=== PATIENT | female | born 1990 | race Caucasian/White ===

== ENCOUNTER 2022-01-21 07:37 | Emergency (ER) | payer OTHER ==
[~2022-01-21] VITALS: Ht 160 cm; Wt 54.4 kg
[2022-01-21] MEDS ORDERED: ACETAMINOPHEN 500 MG TAB PO ONE (09:45)
[2022-01-21 10:35] LABS: Basophils # (auto) 0 10 ^3/uL (0-0.2); Basophils % (auto) 0.3 % (0.0-2.0); Eosinophils # (auto) 0 10 ^3/uL (0-0.8); Eosinophils % (auto) 0.1 % (0.0-7.0); Hematocrit 40.9 % (36.0-46.0); Hemoglobin 13.7 g/dL (12.2-16.2); Lymphocytes # (auto) 0.6 10 ^3/uL (0.4-5.4); Lymphocytes % (auto) 4.9 % (10.0-50.0); Mean Corpuscular Hemoglobin 30.7 pg (28.0-32.0); Mean Corpuscular Hgb Conc. 33.5 g/dL (32.0-36.0); Mean Corpuscular Volume 91.7 fL (80.0-100.0); Monocytes # (auto) 0.3 10 ^3/uL (0-1.3); Monocytes % (auto) 2.5 % (0.0-12.0); Neutrophils # (auto) 11.8 10 ^3/uL (1.6-8.6); Neutrophils % (auto) 92.2 % (37.0-80.0); Red Blood Cells 4.46 10^6/uL (4.0-5.20); Red Cell Distribution Width 12.8 % (11.8-14.3); White Blood Cell 12.8 10^3/uL (4.4-10.8)
[2022-01-21 10:46] LABS: Albumin 3.9 g/dL (3.4-5.0); Calcium 8.3 mg/dL (8.5-10.1); Potassium 4.3 mmol/L (3.5-5.1)
[2022-01-21 10:49] LABS: Bilirubin, Total 0.8 mg/dL (0.2-1.0); Total Protein 7.6 g/dL (6.4-8.2)
[2022-01-21 12:37] VITALS: BP 114/55
[2022-01-21 13:21] LABS: Urine Bacteria NONE SEEN /hpf (None Seen); Urine Blood Negative /uL (Negative); Urine Budding Yeast OCCASIONAL /hpf (None Seen); Urine Specific Gravity 1.024 (1.001-1.035); Urine WBC 3 /hpf (0 - 5)
[2022-01-21 13:41] LABS: Amphetamine Screen, Urine NEGATIVE (NEGATIVE); Barbiturate Scree,Urine NEGATIVE (NEGATIVE); Benzodiazephine Screen, Urine NEGATIVE (NEGATIVE); Cannabinoid Screen, Urine POSITIVE (NEGATIVE); Cocaine Screen, Urine NEGATIVE (NEGATIVE); Phencyclidine Screen, Urine NEGATIVE (NEGATIVE)
[2022-01-21 13:49] LABS: Opiate Scree,Urine NEGATIVE (NEGATIVE)
== END 2022-01-21 14:14 | disposition home or self-care (01) ==
LOC: ER 07:37
DX: S00.03XA Contusion of scalp, initial encounter (principal); R55 Syncope and collapse; F12.10 Cannabis abuse, uncomplicated; W18.39XA Other fall on same level, initial encounter; Y93.89 Activity, other specified; Y92.091 Bathroom in other non-institutional residence as the place of occurrence of the external cause; Y99.8 Other external cause status
CPT/HCPCS: 36415; 80053; 80307; 81001; 83735; 84702; 85025; 93005

== ENCOUNTER 2024-07-01 10:01 | Emergency (ER) | payer OTHER ==
[~2024-07-01] VITALS: Ht 160 cm; Wt 60.7 kg
[2024-07-01 10:53] LABS: Urine Bacteria FEW /hpf (None Seen); Urine Blood Negative /uL (Negative); Urine Clarity Clear (Clear); Urine Color Colorless (Yellow); Urine Protein, UAD Negative (Negative); Urine Specific Gravity 1.008 (1.001-1.035); Urine Urobilinogen Normal (Negative); Urine WBC <1 /hpf (0 - 5)
[2024-07-01 11:11] LABS: Basophils # (auto) 0.1 10 ^3/uL (0-0.2); Basophils % (auto) 0.5 % (0.0-2.0); Eosinophils # (auto) 0 10 ^3/uL (0-0.8); Eosinophils % (auto) 0.4 % (0.0-7.0); Hematocrit 43.1 % (36.0-46.0); Hemoglobin 14.5 g/dL (12.2-16.2); Lymphocytes # (auto) 1.4 10 ^3/uL (0.4-5.4); Mean Corpuscular Hgb Conc. 33.7 g/dL (32.0-36.0); Mean Corpuscular Volume 91.9 fL (80.0-100.0); Monocytes # (auto) 0.4 10 ^3/uL (0-1.3); Monocytes % (auto) 3.7 % (0.0-12.0); Neutrophils # (auto) 10.1 10 ^3/uL (1.6-8.6); Neutrophils % (auto) 83.4 % (37.0-80.0); Platelet Count (auto) 309 10^3/uL (140-450); Red Blood Cells 4.69 10^6/uL (4.0-5.20); Red Cell Distribution Width 12.6 % (11.8-14.3); White Blood Cell 12.1 10^3/uL (4.4-10.8)
[2024-07-01 11:20] LABS: Alanine Aminotransferase 21 U/L (7-40); Albumin 4.7 g/dL (3.2-4.8); Alkaline Phosphatase 57 U/L (46-116); Anion Gap 7 (5-15); Aspartate Aminotransferase 16 U/L (13-40); BUN/Creatinine Ratio 23.6 (10.0-20.0); Bilirubin, Total 1.7 mg/dL (0.2-1.0); Blood Urea Nitrogen 17 mg/dL (9-23); Calcium 9.7 mg/dL (8.7-10.4); Carbon Dioxide 26 mmol/L (20-31); Chloride 106 mmol/L (98-107); Glucose 93 mg/dL (74-106); Potassium 3.8 mmol/L (3.5-5.1); Sodium 139 mmol/L (136-145); Total Protein 7.8 g/dL (5.7-8.2)
[2024-07-01] MEDS: ONDANSETRON ODT 4 MG TAB PO ONE (11:30)
[2024-07-01 12:24] LABS: Lipase 43 U/L (12-53)
[2024-07-01 13:17] VITALS: BP 102/67; PULSE 64; RESP 16; TEMP 97.9; O2SAT 100
[2024-07-01] MEDS: PANTOPRAZOLE 40 MG TAB PO ONE (13:26)
[2024-07-01] MEDS ORDERED: ZOFR4T PO (13:38)
[2024-07-01] MEDS ORDERED: PANT40TA2 PO (13:38)
== END 2024-07-01 14:26 | disposition home or self-care (01) ==
LOC: ER 10:01
DX: K29.00 Acute gastritis without bleeding (principal); Z79.899 Other long term (current) drug therapy
CPT/HCPCS: 36415; 76705; 80053; 81001; 81025; 83690; 85025

== ENCOUNTER → 2025-06-17 | Outpatient (CLI) | payer OTHER ==
[~2025-06-17] MED LIST: PANT40TA2 PO; ZOFR4T PO
[2025-06-17 06:59] LABS: Hematocrit 39.3 % (36.0-46.0); Hemoglobin 14.1 g/dL (12.2-16.2); Mean Corpuscular Hemoglobin 32.0 pg (28.0-32.0); Mean Corpuscular Volume 89.4 fL (80.0-100.0); Nucleated Red Blood Cells % 0.0 %
[2025-06-17 07:42] LABS: Alanine Aminotransferase 18 U/L (7-40); Albumin 4.3 g/dL (3.2-4.8); Alkaline Phosphatase 52 U/L (46-116); Anion Gap 10 (5-15); BUN/Creatinine Ratio 15.9 (10.0-20.0); Blood Urea Nitrogen 11 mg/dL (9-23); Carbon Dioxide 25 mmol/L (20-31); Chloride 106 mmol/L (98-107); Cholesterol 148 mg/dL (< 200); Glucose 90 mg/dL (74-106); HDL Cholesterol 45 mg/dL (40-59); Potassium 4.3 mmol/L (3.5-5.1); Sodium 141 mmol/L (136-145); Total Protein 7.3 g/dL (5.7-8.2); Triglycerides 82 mg/dL (< 150)
[2025-06-17 07:44] LABS: Bilirubin, Total 1.9 mg/dL (0.2-1.0); Calcium 8.6 mg/dL (8.7-10.4)
[2025-06-17 11:24] LABS: Iron 173.0 ug/dL (50-170)
[2025-06-17 11:26] LABS: Total Iron Binding Capacity 255.0 ug/dL (250-425)
[2025-06-17 11:38] LABS: Ferritin 97.4 ng/mL (10-291)
[2025-06-17 11:56] LABS: Hepatitis A Total Antibody Positive (Negative); Hepatitis B Surface Antigen Negative (Negative)
[2025-06-17 11:57] LABS: Hepatitis C Antibody Negative (Negative)
== END | disposition home or self-care (01) ==
LOC: LAB 06:29
PROVIDERS: ATTEND Licensed Practical Nurse
DX: E55.9 Vitamin D deficiency, unspecified (principal); Z13.29 Encounter for screening for other suspected endocrine disorder; Z13.1 Encounter for screening for diabetes mellitus; Z00.01 Encounter for general adult medical examination with abnormal findings
CPT/HCPCS: 36415; 80053; 80061; 82043; 82306; 82607; 82728; 82746; 83036; 83540; 83550; 84443; 85025; 86704; 86706; 86708; 86803; 87340

== ENCOUNTER 2025-07-14 07:17 | Outpatient (CLI) | payer OTHER ==
[2025-07-14 08:11] LABS: Hematocrit 40.7 % (36.0-46.0); Hemoglobin 13.8 g/dL (12.2-16.2); Mean Corpuscular Hemoglobin 31.0 pg (28.0-32.0); Mean Corpuscular Volume 91.2 fL (80.0-100.0); Nucleated Red Blood Cells % 0.0 %
[2025-07-14 08:19] LABS: Alanine Aminotransferase 20 U/L (7-40); Albumin 4.3 g/dL (3.2-4.8); Alkaline Phosphatase 61 U/L (46-116); Anion Gap 10 (5-15); BUN/Creatinine Ratio 11.9 (10.0-20.0); Bilirubin, Total 1.1 mg/dL (0.2-1.0); Blood Urea Nitrogen 8 mg/dL (9-23); Calcium 8.8 mg/dL (8.7-10.4); Carbon Dioxide 26 mmol/L (20-31); Chloride 107 mmol/L (98-107); Glucose 88 mg/dL (74-106); Potassium 4.3 mmol/L (3.5-5.1); Sodium 143 mmol/L (136-145); Total Protein 7.4 g/dL (5.7-8.2)
[2025-07-15 08:07] LABS: Immunoglobulin A 376 mg/dL (87-352)
[2025-07-17 14:07] LABS: H. pylori Stool Ag, EIA Negative (Negative)
== END 2025-07-14 17:00 | disposition home or self-care (01) ==
LOC: LAB 07:17
PROVIDERS: ATTEND Registered Nurse
DX: R19.4 Change in bowel habit (principal)
CPT/HCPCS: 36415; 80053; 82270; 82272; 82784; 83516; 85025; 86255; 87045; 87177; 87427